=== PATIENT | male | born 1960 | race Caucasian/White ===

== ENCOUNTER 2018-05-12 01:10 | Outpatient (CLI) | payer OTHER, SELFPAY ==
--- NOTE | 2018-06-02 11:49 | ZIOP_ITS ---
DATE OF DICTATION: June 02, 2018 INDICATION: Palpitations. ANALYSIS TIME: 12 days and 11 hours. Predominant underlying rhythm is sinus rhythm. Average heart rate is 75 bpm. Minimum heart rate 46 bpm. Maximum heart rate 161 bpm. Rare isolated atrial ectopy. No atrial fibrillation or SVT. Rare isolated ventricular ectopy. No non-sustained VT. No significant pauses or bradyarrhythmias. Two patient-triggered events correspond to sinus rhythm. One diary entry with lightheadedness/chest pressure/pain corresponds to sinus rhythm with a PVC. Overall sinus rhythm with no significant arrhythmias.
== END 2018-05-12 01:30 ==
PROVIDERS: PCP Internal Medicine; Visit Provider Internal Medicine
DX: R00.2 Palpitations (principal); R55 Syncope and collapse; I49.3 Ventricular premature depolarization
CPT/HCPCS: 93225

== ENCOUNTER 2019-01-16 01:31 | Outpatient (CLI) | payer OTHER, SELFPAY ==
--- NOTE | 2019-02-20 12:14 | W.CARDEVENT ---
Cardiac Event Recorder Cardiac Event Note: This is an event monitor worn for 1 month. Indication was palpitations. ?The predominant rhythm was normal sinus with a mean heart rate of 75 bpm. ?There were no episodes of atrial fibrillation ?There were no episodes of supraventricular tachycardia ?There were no episodes of ventricular tachycardia. There were rare (1%) ventricular ectopic beats. ?Patient triggered events were associated with sinus rhythm and in one instance 3 PVCs in a row. ?There were no pauses greater than 3 seconds and no episodes of high degree heart block. Date of service: 02/20/19 Time of Service: 12:15
== END 2019-01-16 01:51 ==
PROVIDERS: PCP Internal Medicine; Visit Provider Internal Medicine
DX: R00.2 Palpitations (principal); I49.3 Ventricular premature depolarization
CPT/HCPCS: 93270

== ENCOUNTER 2020-12-25 17:16 | Outpatient (REF) | payer BC, SELFPAY ==
[2020-12-25 14:21] LABS: Anion Gap 8.7 mmol/L (3-11); BUN 14 mg/dL (7-18); CO2 27.3 mmol/L (21.0-32.0); CREATININE 0.9 mg/dL (0.70-1.30); Calcium 9.2 mg/dL (8.5-10.1); Calculated LDL 64 mg/dL (<100); Chloride 105 mmol/L (98-107); Cholesterol 140 mg/dL (<200); Glucose 107 mg/dL (74-106); HDL Cholesterol 41 mg/dL (40-60); Potassium 4.6 mmol/L (3.5-5.1); Sodium 141 mmol/L (136-145); Triglyceride 176 mg/dL (<150)
== END 2020-12-25 17:17 | disposition home or self-care (01) ==
LOC: NCHCN 17:16
PROVIDERS: PCP Internal Medicine; Visit Provider Internal Medicine
DX: Z13.220 Encounter for screening for lipoid disorders (principal); I10 Essential (primary) hypertension
CPT/HCPCS: 80048; 80061

== ENCOUNTER 2021-01-22 20:38 | Outpatient (REF) | payer BC, SELFPAY ==
[2021-01-24 12:06] LABS: COVID-19 RT-PCR UVMMC Result Negative (Negative)
== END 2021-01-22 20:39 | disposition home or self-care (01) ==
LOC: NCHCN 20:38
PROVIDERS: PCP Internal Medicine; Visit Provider Internal Medicine
DX: Z20.822 Contact with and (suspected) exposure to COVID-19 (principal)
CPT/HCPCS: U0003

== ENCOUNTER 2022-02-09 18:52 | Outpatient (REF) | payer BC, SELFPAY ==
[2022-02-09 14:45] LABS: HCT 40.8 % (40.0-50.0); HGB 14.1 g/dL (13.5-17.5); MCH 30.5 pg (27.0-33.0); MCHC 34.6 % (32.0-36.0); MCV 88 fL (80-95); Platelet Count 201 10^3/uL (130-400); RBC 4.63 10^6/uL (4.36-5.78); RDW 12.2 % (11.8-14.1); RDW-SD 39.2 fL; WBC 5.71 10^3/uL (4.4-10.8)
[2022-02-09 15:31] LABS: Anion Gap 6.7 mmol/L (3-11); BUN 18 mg/dL (7-18); CO2 30.3 mmol/L (21.0-32.0); CREATININE 0.8 mg/dL (0.70-1.30); Calcium 9.6 mg/dL (8.5-10.1); Calculated LDL 63 mg/dL (<100); Chloride 103 mmol/L (98-107); Cholesterol 148 mg/dL (<200); Estimated GFR 101.32 (mL/min/1.73m2); Glucose 122 mg/dL (74-106); HDL Cholesterol 44 mg/dL (40-60); Potassium 4.9 mmol/L (3.5-5.1); Sodium 140 mmol/L (136-145); Triglyceride 205 mg/dL (<150)
[2022-02-09 16:13] LABS: NT-proBNP 25 pg/mL (<300)
== END 2022-02-09 18:53 | disposition home or self-care (01) ==
LOC: NCHCN 18:52
PROVIDERS: PCP Internal Medicine; Visit Provider Internal Medicine
DX: R06.09 Other forms of dyspnea (principal); I25.10 Atherosclerotic heart disease of native coronary artery without angina pectoris; J30.9 Allergic rhinitis, unspecified; F51.04 Psychophysiologic insomnia
CPT/HCPCS: 80048; 80061; 85027; 83880

== ENCOUNTER 2023-02-22 18:29 | Outpatient (REF) | payer BC, SELFPAY ==
[2023-02-22 21:21] LABS: Anion Gap 8.6 mmol/L (3-11); BUN 12 mg/dL (7-18); CO2 28.4 mmol/L (21.0-32.0); CREATININE 0.9 mg/dL (0.70-1.30); Calcium 9.2 mg/dL (8.5-10.1); Calculated LDL 43 mg/dL (<100); Chloride 105 mmol/L (98-107); Cholesterol 148 mg/dL (<200); Estimated GFR 96.57 (mL/min/1.73m2); Glucose 160 mg/dL (74-106); HDL Cholesterol 43 mg/dL (40-60); Potassium 4.2 mmol/L (3.5-5.1); Sodium 142 mmol/L (136-145); Triglyceride 310 mg/dL (<150)
== END 2023-02-22 18:30 | disposition home or self-care (01) ==
LOC: NCHCN 18:29
PROVIDERS: PCP Internal Medicine; Visit Provider Internal Medicine
DX: I10 Essential (primary) hypertension (principal); Z13.220 Encounter for screening for lipoid disorders
CPT/HCPCS: 80048; 80061

== ENCOUNTER 2024-05-22 17:13 | Outpatient (REF) | payer BC, SELFPAY ==
[2024-05-22 15:59] LABS: ALT 60 U/L (16-63); AST 37 U/L (15-37); Alkaline Phosphatase 88 U/L (46-116); Anion Gap 5.5 mmol/L (3-11); BUN 15 mg/dL (7-18); Bilirubin, Total 0.54 mg/dL (0.2-1.0); CO2 29.5 mmol/L (21.0-32.0); CREATININE 0.9 mg/dL (0.70-1.30); Calculated LDL 61 mg/dL (<100); Chloride 109 mmol/L (98-107); Cholesterol 144 mg/dL (<200); Estimated GFR 95.97 (mL/min/1.73m2); Glucose 90 mg/dL (74-106); HDL Cholesterol 46 mg/dL (40-60); Potassium 4.6 mmol/L (3.5-5.1); Sodium 144 mmol/L (136-145); Triglyceride 187 mg/dL (<150)
[2024-05-22 16:00] LABS: Hemoglobin A1C 5.5 % (<5.7)
[2024-05-23 10:32] LABS: HIV-1/2 Ag & Ab Screen Negative (Negative)
[2024-05-23 10:43] LABS: Hepatitis C Ab w Rflx HCV PCR Negative (Negative)
== END 2024-05-22 17:14 | disposition home or self-care (01) ==
LOC: NCHCN 17:13
PROVIDERS: PCP Internal Medicine; Visit Provider Family Medicine
DX: I25.10 Atherosclerotic heart disease of native coronary artery without angina pectoris (principal); I10 Essential (primary) hypertension; Z11.4 Encounter for screening for human immunodeficiency virus [HIV]
CPT/HCPCS: 80053; 80061; 86803; 87389; 83036

== ENCOUNTER 2025-04-27 13:03 | Emergency (ER) | payer BC, SELFPAY ==
[2025-04-27 13:05] VITALS: BP 169/94; PULSE 90; RESP 17; TEMP 36.4; O2SAT 95
--- NOTE | 2025-04-27 13:21 | W.ED.GENAD ---
Discharge Plan Disposition Patient Disposition: Home Condition: Stable Discharge Details Clinical Impression: Lumbar paraspinal muscle spasm Primary Care Provider: Anton Pike ED Provider: Silvino Rojas Home Meds and New Rx's Prescriptions: New ketorolac 10 mg tablet 10 mg PO QID 5 Days Qty: 20 0RF Rx Instructions: maximum total duration of 5 days from all oral, intranasal, or parenteral formulations prednisone 20 mg tablet 40 mg PO DAILY 4 Days Qty: 8 0RF Continued triamcinolone acetonide 55 mcg aerosol,spray 2 spray intranasal DAILY Qty: 16.9 12RF Rx Instructions: administer into each nostril montelukast [Singulair] 10 mg tablet 10 mg PO DAILY Qty: 90 4RF fexofenadine [Keri Allergy] 60 MG tablet 60 mg PO DAILY metoprolol succinate 50 mg tablet extended release 24 hr 100 mg PO DAILY lisinopril 5 mg tablet 5 mg PO DAILY amlodipine 2.5 mg tablet 2.5 mg PO DAILY isosorbide mononitrate 30 mg tablet extended release 24 hr 30 mg PO DAILY atorvastatin 80 mg tablet 80 mg PO QHS nitroglycerin [Nitrostat] 0.4 mg tablet, sublingual 0.4 mg sublingual Q5M PRN Rx Instructions: do not exceed 3 doses per episode aspirin [Adult Aspirin Regimen] 81 mg tablet,delayed release (DR/EC) 81 mg PO DAILY Discharge Instructions Instructions: Ketorolac (Systemic), Diazepam, Prednisone, Muscle Spasm ED Additional Instructions: You were seen in the emergency department for your acute lumbar muscle spasm. You are neurovascularly intact in lower extremities and have no bowel or urinary changes and no fever. Your muscle spasms were well-controlled with your prior dose of ibuprofen and adding 1000 mg of Tylenol, 5 mg diazepam for muscle relaxation, 40 mg of prednisone, lidocaine patch and heat to the area. I want you to continue this regimen at home, take 1000 mg of Tylenol every 6 hours like clockwork, prison in between Tylenol dosings please take 10 mg prescribed ketorolac also on a 6-hour schedule. Take this for 5 days, when you run out substitute for 100 mg of ibuprofen in place of the ketorolac. Take the prescribed prednisone for the next 4 days, starting tomorrow as we gave a dose to you here today. We provided you with 3 tablets of diazepam 5 mg for skeletal muscle relaxation, these are quite strong and sedating muscle relaxation medications, do not drive or drink or perform any dangerous activity on these, you can start with 1/2 pill to see if this covers your pain you can take this up to 2 times per day but try to use this sparingly as it is habit-forming. Apply an [id number] lidocaine patch to the area of pain each night for 12 hours, apply heat and ice and perform your stretching exercises throughout the day, follow-up with your provider that treats your back pain, return for any leg weakness, urinary retention or bowel incontinence. Stand Alone Forms: Physical Therapy Referral, Portal Information Referrals: Anton Pike MD [Primary Care Provider, Medicine] Discharge Data Discharge Date/Time-TO BE ENTERED AT DEPARTURE: 04/27/25 16:33 HPI General Date/Time Provider Initiated Documentation: 04/27/25 13:21. HPI Narrative: 65 year-old male presents to ED today by POV/ambulating with his with a chief complaint of severe lower back pain, acute on chronic with history of spinal fusion- stating his back is in spasm, which has happened in the past with onset this morning. Quality described as sharp stinging back pain, makes it hard for him to walk, no radiation to bowel/urinary changes, leg weakness, numbness/tingling, numbness to genitalia. Severity is described as severe. Palliating factors include Advil taken this morning and 30 minutes ago. Provoking factors include any movement. Events leading up to the incident/Associated Symptoms: Patient usually sees a chiropractor biweekly or monthly for treatments. Patient not anticoagulated. Related Data Home Medications ?Medication ?Instructions ?Recorded ?Confirmed fexofenadine 60 mg tablet (Keri 60 mg PO DAILY 10/24/14 04/27/25 Allergy) amlodipine 2.5 mg tablet 2.5 mg PO DAILY 12/26/20 04/27/25 aspirin 81 mg tablet,delayed 81 mg PO DAILY 12/26/20 04/27/25 release (Adult Aspirin Regimen) atorvastatin 80 mg tablet 80 mg PO QHS 12/26/20 04/27/25 isosorbide mononitrate 30 mg 30 mg PO DAILY 12/26/20 04/27/25 tablet,extended release 24 hr lisinopril 5 mg tablet 5 mg PO DAILY 12/26/20 04/27/25 metoprolol succinate 50 mg 100 mg PO DAILY 12/26/20 04/27/25 tablet,extended release 24 hr nitroglycerin 0.4 mg sublingual 0.4 mg sublingual Q5M PRN 12/26/20 04/27/25 tablet (Nitrostat) triamcinolone acetonide 55 mcg 2 spray intranasal DAILY #16.9 mL 03/23/23 04/27/25 nasal spray aerosol montelukast 10 mg tablet 10 mg PO DAILY #90 tabs 01/10/24 04/27/25 (Singulair) ketorolac 10 mg tablet 10 mg PO QID 5 days #20 tabs 04/27/25 prednisone 20 mg tablet 40 mg (2 x 20 mg) PO DAILY 4 days 04/27/25 #8 tabs Previous Rx's ?Medication ?Instructions ?Recorded triamcinolone acetonide 55 mcg 2 spray intranasal DAILY #16.9 mL 03/23/23 nasal spray aerosol montelukast 10 mg tablet 10 mg PO DAILY #90 tabs 01/10/24 (Singulair) ketorolac 10 mg tablet 10 mg PO QID 5 days #20 tabs 04/27/25 prednisone 20 mg tablet 40 mg (2 x 20 mg) PO DAILY 4 days 04/27/25 #8 tabs Allergies Allergy/AdvReac Type Severity Reaction Status Date / Time soy Allergy Mild sneezing Unverified 04/27/25 13:17 grass pollen Allergy Other (See Verified 04/27/25 13:17 Comment) ketchup Allergy Other (See Verified 04/27/25 13:17 Comment) dust mite Allergy Other (See Uncoded 04/27/25 13:17 Comment) trees Allergy Other (See Uncoded 04/27/25 13:17 Comment) General Stated Complaint: Nk/Back Pain MARNIE: 3 Review of Systems All systems reviewed & are unremarkable except as noted in HPI and below Exam Narrative Exam Narrative: GENERAL APPEARANCE: Well-nourished, non-toxic, awake and alert, atraumatic, moderate acute distress. SKIN: Warm, pink, dry, intact, without rashes/lesions/ulcerations. HEAD: Normocephalic, atraumatic, normal hair distribution for gender/age. EYES: Normal conjunctiva, no exudates on lids/lashes. ENT: Nares patent, no circumoral cyanosis, no facial swelling NECK: Supple, trachea midline, painless cervical ROM. LUNGS/CHEST: Non-labored respirations, normal A/P diameter, symmetrical expansion, no chest wall deformity HEART (CV/PV): No peripheral edema, no JVD. ABDOMEN: Soft, non-distended, no guarding. MSK: Normal ROM, no swelling/deformity to bilateral UEs or LEs, moving all extremities without weakness, no cyanosis, spine midline with R SI joint tenderness, no crepitus/stepoffs over lumbar vertebrae, loss of lumbar lordosis, sensation intact LEs, strength 5/5 LEs, no saddle anesthesia- sensation intact NEURO: Mental Status AAOx4 - alert to person, place, time, events No facial droop, no forehead involvement. Motor: No focal weakness Sensory: sensation intact to light touch globally. Gait antalgic. PSYCH: euthymic, cooperative, pleasant, appropriate speech Course Vital Signs Vital signs: Vital Signs Temperature 36.4 C 04/27/25 13:05 Pulse 90 04/27/25 13:05 Respiratory Rate 17 04/27/25 13:05 Blood Pressure 169/94 H 04/27/25 13:05 Pulse Oximetry 95 04/27/25 13:05 Temperature 36.4 C 04/27/25 13:05 Temperature Source Oral 04/27/25 13:05 Pulse 90 04/27/25 13:05 Respiratory Rate 17 04/27/25 13:05 Blood Pressure 169/94 H 04/27/25 13:05 Blood Pressure Position Sitting 04/27/25 13:05 Pulse Oximetry 95 04/27/25 13:05 Oxygen Delivery Method Room Air 04/27/25 13:05 Oxygen Flow Rate 0 04/27/25 13:05 Pain Level 10 04/27/25 13:05 Medical Decision Making This dictation utilizes [id number] dictation software and may contain unedited grammatical errors. 65 year-old male presents to ED today by POV/ambulating with his with a chief complaint of severe lower back pain, acute on chronic with history of spinal fusion- stating his back is in spasm, which has happened in the past with onset this morning. Quality described as sharp stinging back pain, makes it hard for him to walk, no radiation to bowel/urinary changes, leg weakness, numbness/tingling, numbness to genitalia. Severity is described as severe. Palliating factors include Advil taken this morning and 30 minutes ago. Provoking factors include any movement. Events leading up to the incident/Associated Symptoms: Patient usually sees a chiropractor biweekly or monthly for treatments. Patients' medical history: Stable angina, history of spinal fusion. Family and social history: Lives at home with his , no recent travel or sick contacts, no IVDU history. Pertinent exam findings / vital signs include no weakness to legs, strength 5/5 proximal and distal, sensation intact, no saddle anesthesia, right SI joint tenderness. Differential / pathologies of concern include lumbar paraspinal muscle spasm, not cauda equina, no new trauma or fracture. Diagnostic studies of: - None, discussed conservative management with medications prior to imaging. Interventions of: - 1 g p.o. Tylenol, 5 mg p.o. Valium, topical Lidoderm patch, 5 mg oxycodone, 40 mg prednisone p.o, 3 tabs of 5 mg Valium to go. - Spent considerable time coaching patient on leg exercises/stretches while he was on ED cot, with significant improvement ED Course/Assessment/Plan: 65-year-old male presents in severe acute lower back spasm which has happened in the past not very frequently but does occur. He has a history of spinal fusion, he was able to ambulate and once he was laying down for a while he became very stiff and had spasm, I had him performing constant leg exercises in the ED, with improvement as well as improvement after Tylenol and Valium and Lidoderm patch and oxycodone were added, I did put him on a prednisone burst for 5 days and sent him home with 3 tabs of Valium 5 mg with instructions to take 1/2-1 tab while at home and use a back brace and apply gentle heat and ice to the area, strict return criteria for any leg weakness or signs of cauda equina but to follow-up with his normal providers should he choose about his chronic back issues, I did offer the patient many times in observation for intractable back pain but he preferred to be discharged home, I did give him a makeshift Ramsey wrap lumbar brace but he has prefabricated 1 at home. Findings not consistent with cauda equina, spinal epidural abscess, myelopathy. Disposition of lumbar paraspinal muscle spasm. Patient verbalized understanding of the plan and return to ED criteria and engaged in shared decision making. Medical Records Medical records reviewed: Yes I reviewed the patient's medical records. PFSH All Active Problems (Updated 04/27/25 @ 14:32 by JAMIE Khanna) Lumbar paraspinal muscle spasm (Acute) Chronic sinusitis (Acute) Deviated nasal septum (Acute) Hyposmia (Acute) Sebaceous cyst (Acute) Coronary artery disease (Chronic) Medical History Erectile dysfunction Hypertension Overweight (BMI 25.0-29.9) Insomnia Stable angina Nasal polyposis Allergic rhinitis Surgical History Spinal Fusion Social History Smoking/Tobacco Use Status: Former Tobacco Use Smoking risk assessment performed?: Yes Alcohol Intake: current Alcohol Intake frequency: holidays/special occasions only Current gender identity: male
[2025-04-27] MEDS: Acetaminophen 500 MG TAB 1000 MG PO (13:50)
[2025-04-27] MEDS: diazePAM 5 MG TAB PO (13:50)
[2025-04-27] MEDS: predniSONE 20 MG TAB 40 MG PO (13:50)
[2025-04-27] MEDS: Lidocaine 5% Patch 1 PATCH TP (13:50)
[2025-04-27 14:37] VITALS: BP 133/55; PULSE 76; RESP 18; O2SAT 99
[2025-04-27 14:54] VITALS: BP 138/58; PULSE 68; TEMP 36.6; O2SAT 97
[2025-04-27] MEDS: oxyCODONE 5 MG TAB PO (15:43)
[2025-04-27] MEDS: diazePAM 5 MG TAB 15 MG PO (16:16)
[2025-04-27 16:31] VITALS: BP 148/62; PULSE 84; RESP 18; O2SAT 98
== END 2025-04-27 16:33 | disposition home or self-care (01) ==
PROVIDERS: Emergency Provider Physician Assistant; PCP Internal Medicine
DX: M62.830 Muscle spasm of back (principal); Z98.1 Arthrodesis status
CPT/HCPCS: 99283 ×2; J7512